=== PATIENT | male | born 1970 | race Caucasian/White ===

== ENCOUNTER 2018-03-10 05:18 | Day surgery (SDC) | payer OTHER, BC ==
[2018-03-09 13:10] VITALS: BMI 25.0
--- NOTE | 2018-03-10 09:15 | HP ---
[facility] - Chief Complaint Chief Complaint: right elbow pain History of Present Illness: right elbow pain History Source: Patient Limitations to Obtaining History: No Limitations - Past Medical History Allergies/Adverse Reactions: Allergies Allergy/AdvReac Type Severity Reaction Status Date / Time No Known Allergies Allergy Verified 03/09/18 13:13 - Current Medications Current Medications: Home Medications Medication Instructions Recorded NK [No Known Home Medication] 03/09/18 Satellite Physical Exam - Physical Examination General Appearance: Well Nourished ENT: Clear Lung: Clear to auscultation Heart: Regular rate & rhythm Breasts: Soft Abdomen: Soft Extremities: No edema Satellite Impression/Plan - Impression/Plan Impression: right elbow lateral epicondylitis Operative Procedure: right elbow lateral epicondylectomy, repair of extensor tendon Date to be Performed: 03/10/18
[2018-03-10] MEDS ORDERED: ONDANSETRON 4 MG/2 ML VIAL IVPUSH PRN (10:40)
[2018-03-10] MEDS ORDERED: ACETAMINOPHEN 1000 MG/100 ML VIAL (NON FORMULARY) IVPB ONE (10:40)
[2018-03-10] MEDS ORDERED: oxyCODONE HCL 5 MG TABLET PO PRN ×2 (10:40)
[2018-03-10] MEDS ORDERED: LACTATED RINGERS SOLUTION 1,000 ML IV SCH (10:45)
[2018-03-10] MEDS ORDERED: BUPIVACAINE HCL/PF 0.5% (5MG/ML) 10 ML VIAL ONE ×2 (11:22→12:06)
[2018-03-10] MEDS ORDERED: DEXAMETHASONE SOD PHOSPHATE/PF 10 MG/ML SDV ONE (11:22)
[2018-03-10] MEDS ORDERED: MIDAZOLAM HCL 2 MG/2 ML SINGLE DOSE VIAL ONE ×3 (11:23→12:46)
[2018-03-10] MEDS ORDERED: PROPOFOL 20 ML ONE ×2 (12:46)
[2018-03-10] MEDS ORDERED: DEXAMETHASONE SOD PHOSPHATE 4 MG/1 ML VIAL ONE (12:49)
[2018-03-10] MEDS ORDERED: LIDOCAINE HCL/PF 2% SDV 5ML VIAL ONE ×2 (12:49)
[2018-03-10] MEDS ORDERED: ceFAZolin SODIUM 1 GM VIAL ONE (12:49)
[2018-03-10] MEDS ORDERED: LIDOCAINE HCL 2% JELLY (5 ML/TUBE) ONE (12:49)
[2018-03-10] MEDS ORDERED: ceFAZolin SODIUM 1 GM VIAL IVPB ONE ×2 (13:19)
--- NOTE | 2018-03-10 14:51 | OP ---
Operative Note - Note: Operative Date: 03/10/18 Pre-Operative Diagnosis: right elbow lateral epicondylitis, tear of ECRB Operation: right elbow lateral epicondylectomy, repair of ECRB Implants: 3 x Mini Mitek suture anchors Surgeon: Dm Tran Anesthesiologist/PHARMACY INTERN: Franc Senior Anesthesia: General, Local Specimens Removed: elbow ecrb tissue Estimated Blood Loss (mls): 0 Drains, Volume Out (mls): 0 Blood Volume Replaced (mls): 0 Fluid Volume Replaced (mls): 1,000 Operative Report Dictated: Yes
[2018-03-10 16:01] VITALS: TEMP 97.9
[2018-03-10 16:40] VITALS: BP 132/83; PULSE 60
--- NOTE | 2018-03-11 09:36 | OP ---
DATE OF OPERATION: 03/10/2018 PREOPERATIVE DIAGNOSIS: Right elbow lateral epicondylitis and extensor carpi radialis brevis tear. POSTOPERATIVE DIAGNOSIS: Right elbow lateral epicondylitis and extensor carpi radialis brevis tear. PROCEDURE: Right elbow lateral epicondylectomy and repair of extensor carpi radialis brevis. SURGEON: Ermias Reyes MD ANESTHESIOLOGIST: Franc Senior CRNA ANESTHESIA: Right interscalene block with LMA anesthesia. DRAINS: None. COMPLICATIONS: None. SPECIMEN: Inflammatory tissue, right elbow ECRB tendon. IMPLANTS: Three Arthrex mini Mitek suture anchors. BLOOD LOSS: None. BLOOD GIVEN: None. FLUID REPLACEMENT: Plasma-Lyte 1000 mL. This patient is a 47-year-old male with preoperative diagnosis of severe, recurrent right elbow lateral epicondylitis and a torn ECRB tendon. After understanding the potential risks, complications, alternatives, and benefits of surgery versus nonsurgical treatment, the patient elected to undergo this procedure. Patient was brought to the operating room. Peripheral IV placed. IV sedation given. A right interscalene block was performed. LMA anesthesia was induced. He was placed into a sloppy lateral position with a bump under his right hemipelvis. Two grams of IV Ancef were given. The right upper extremity was prepped and draped in sterile fashion, elevated, exsanguinated with an Esmarch bandage. Tourniquet inflated to 250 mmHg. A curvilinear incision was marked lateral epicondyle at the origin of the ECRB. A number-15 scalpel blade was utilized to cut down through the skin. Subcutaneous hemostasis was achieved with the bipolar cautery, dissection done through the superficial fascia with Metzenbaum scissors. This exposed the lateral epicondyle, and the origin of the ECRB which already I could see had 1 longitudinal tear. Weitlaner retractors were placed into the wound, then used to freshen with 15-scalpel blade to use 3 longitudinal slits, one in the top portion near the ztea-pae-efj position; one in the middle portion, extending the already-existing tear; and the other slightly more posteriorly. Through the central rent, I was able to see a very large tear of the entire origin of the ECRB off the lateral epicondyle. The area was copiously irrigated and washed out. Inflammatory tissue that I could see directly was removed. A curette was used to curette the tendon and to mildly decorticate the lateral epicondyle. I then used a small, 1.5-mm, drill bit to do 4 drill holes in each of the 3 rents. These were in the lateral epicondyle. Next, I put in 1 mini Mitek suture anchor into the lateral epicondyle and repaired the ECRB down to the tendon. It was such a large tear that I put in 2 more mini Mitek suture anchors, one slightly anterior, one slightly posterior in a triangular fashion, and was able to tack down additional portions of the origin of the ECRB. I then used 2-0 Vicryl sutures and repaired all 3 rents. I then supplemented the repaired flap to the more anterior and posterior fascia. Overall, it came together quite nicely and completely covered the lateral epicondyle. The area was copiously irrigated and washed out, and 4-0 undyed Vicryl was used to close the deep dermal layer. Final skin reapproximation was done with a running subcuticular 4-0 Biosyn stitch. It was then washed and dried, covered with Steri-Strips, 4 x 4 gauze, Webril, and a 5-inch posterior Ortho-Glass splint was applied, wrapped with Katherin and 3 Teja bandages. Tourniquet was taken down after total tourniquet time of 60 minutes. There were no complications during the case. The patient tolerated the procedure quite well, was brought to the ambulatory recovery room in stable condition. ERMIAS REYES M.D. [id number]
--- NOTE | 2018-03-12 11:49 | PATH ---
Surgical Pathology Report Patient Name: RICHARD MCFARLANE [facility]. Rec. #: [id number] /Age/Gender: 1970 (Age: 47) / M Account: [id number] Location: [facility] Taken: 03/10/2018 Received: 03/11/2018 Reported: 03/12/2018 Physicians: Dm Tran M.D. Specimen(s) Received TISSUE RIGHT ELBOW Clinical History Lateral epicondylitis right arm, tear of ECRB Final Diagnosis BONE AND SOFT TISSUE, RIGHT ELBOW, EXCISION: PORTIONS OF SYNOVIUM, FIBROUS TISSUE, AND BONE. Electronically Signed Jimmie Pinedo M.D. Gross Description Received in formalin labeled "tissue right elbow," is a 1.5 x 1.4 x 0.2 cm aggregate of johnson fragments of fibrous tissue admixed with yellow, lobulated adipose tissue. The specimen is entirely submitted in one cassette. /03/11/201803/11/2018
== END 2018-03-10 16:30 | disposition home or self-care (01) ==
LOC: JASU-SURG 05:18
PROVIDERS: ATTEND Orthopaedic Surgery
PROC: 0LQ50ZZ Repair Right Lower Arm and Wrist Tendon, Open Approach (ICD-10-PCS; 2018-03-10)
PROC: 0RBL0ZZ Excision of Right Elbow Joint, Open Approach (ICD-10-PCS; principal; 2018-03-10 11:00)
DX: M77.11 Lateral epicondylitis, right elbow (principal)
CPT/HCPCS: 88304-TC; 94760

== ENCOUNTER → 2018-05-07 | Emergency (ER) | payer BC, OTHER ==
[~2018-05-07] MED LIST: ACETAMINOPHEN 1000 MG/100 ML VIAL (NON FORMULARY) IVPB ONE; ACETAMINOPHEN INJECTION 100 ML IVPB ONE; HALOPERIDOL LACTATE 5 MG/ML IVPUSH ONE; KETOROLAC TROMETHAMINE 30 MG/1 ML VIAL IVPUSH ONE; KETOROLAC TROMETHAMINE 30 MG/1 ML VIAL ONE; METOCLOPRAMIDE HCL INJECTION 10 MG/2 ML VIAL IVPB ONE; METOCLOPRAMIDE HCL INJECTION 10 MG/2 ML VIAL ONE; ONDANSETRON 4 MG/2 ML VIAL IVPUSH ONE; ONDANSETRON 4 MG/2 ML VIAL ONE; PANTOPRAZOLE SODIUM 40 MG VIAL IVPUSH ONE; PANTOPRAZOLE SODIUM 40 MG VIAL ONE; SODIUM CHLORIDE 0.9% 500 ML INFUS.BAG IV ONE
[2018-05-07 02:42] VITALS: BMI 25.0
--- NOTE | 2018-05-07 03:00 | PDOC ---
Attending Attestation - Resident Resident Name: Jin Murphy - ED Attending Attestation I have performed the following: I have examined & evaluated the patient, The case was reviewed & discussed with the resident, I agree w/resident's findings & plan, Exceptions are as noted - HPI HPI: 05/07/18 05:21 Ms Lehman is a 47 yo M h/o cyclical vomiting syndrome, h/o prior admission for abdominal pain Pt states he has had abdominal pain since yesterday Crampy pain, located in the center of his abdomen No fever or chills (+) vomiting No diarrhea In the past, pt has tried using marijuanna He did this again today but it did not help He tried sitting in a warm tub, this helped while he was in the tub but as soon as he left, his symptoms returned 05/07/18 05:29 - Physicial Exam PE: 05/07/18 04:35 GENERAL: The patient is in no acute distress, pt appears uncomfortable, (+) dark emesis in bag HEAD: Normal EYES: PERRLA, EOMI, sclera anicteric, conjunctiva clear. ENT: Dry mucous membranes. LUNGS: Breath sounds equal, clear to auscultation bilaterally. No wheezes, and no crackles. HEART:Regular rate and rhythm, normal S1 and S2 without murmur, rub or gallop. ABDOMEN: Soft, mid abdominal tenderness to palpation, no involuntary guarding, no rebound, no distention EXTREMITIES: Normal range of motion NEUROLOGICAL: Cranial nerves II through XII grossly intact. Normal speech. No focal neurological deficits. MUSCULOSKELETAL: Back non-tender to palpation SKIN: Warm, Dry, normal turgor, no rashes or lesions noted. 05/07/18 05:39 - Medical Decision Making 05/07/18 04:35 Laboratory Tests 05/07/18 05/07/18 03:15 03:15 WBC 13.4 H Hgb 15.4 Hct 44.6 Plt Count 317 Sodium 142 Potassium 4.3 Chloride 104 Anion Gap 10 BUN 15 Creatinine 1.0 Random Glucose 129 H Total Bilirubin 0.7 AST 21 ALT 42 Lipase 124 05/07/18 05:50 EKG: SR rate of 54 bpm, axis nml, intervals nml - pr: 114ms, QRS: 84ms, QTc: 415ms, no st elevations artifact noted baseline (suspect related to movement) Will treat pain Consider Haldol Will do CT (pt has not been here in almost 2 years, states pain has not improved with the things he typically does to improve his abdominal pain Signed out to Dr Mota
[2018-05-07 03:27] LABS: HEMATOCRIT 44.6 % (35.4-49); HEMOGLOBIN 15.4 GM/dL (11.7-16.9); MCH 32.7 pg (25.7-33.7); MCHC 34.4 g/dl (32.0-35.9); MEAN PLT VOLUME 8.7 fl (7.5-11.1); PLATELET COUNT 317 K/MM3 (134-434); WHITE BLOOD COUNT 13.4 K/mm3 (4.0-10.0)
[2018-05-07 03:54] LABS: ALBUMIN 4.8 g/dl (3.4-5.0); ALK PHOS 78 U/L (45-117); ANION GAP 10 MMOL/L (8-16); BILIRUBIN,TOTAL 0.7 mg/dL (0.2-1); BLOOD UREA NITROGEN 15 mg/dL (7-18); CALCIUM 9.1 mg/dL (8.5-10.1); CHLORIDE 104 mmol/L (98-107); CO2 29 mmol/L (21-32); GLUCOSE,RANDOM 129 mg/dL (74-106); POTASSIUM 4.3 mmol/L (3.5-5.1); SGOT/AST 21 U/L (15-37); SGPT/ALT 42 U/L (13-61); SODIUM 142 mmol/L (136-145)
[2018-05-07 04:32] LABS: LIPASE 124 U/L (73-393)
--- NOTE | 2018-05-07 05:31 | PDOC ---
History of Present Illness - General Chief Complaint: Vomiting Blood Stated Complaint: VOMITING BLOOD,CHILLS Time Seen by Provider: 05/07/18 03:00 - History of Present Illness Initial Comments: The patient is a 47M w/ a PMH of HTN and THC use who presents for evaluation of 4-5 hours of intractable bloody vomiting. The patient reports a history of anxiety with vomiting episodes in the past; however, none have been bloody in the past. He reports that he has not had any new foods, exposures, or sick contacts. He endorses associated chills, and epigastric abdominal pain. Denies IZAGUIRRE, blurry vision, chest pain, shortness of breath, dysuria, hematuria, constipation, diarrhea, or blood in his stool. Normal EGD per patient 1y ago 05/07/18 05:24 Past History - Past Medical History Allergies/Adverse Reactions: Allergies Allergy/AdvReac Type Severity Reaction Status Date / Time No Known Allergies Allergy Verified 03/10/18 09:35 Home Medications: Ambulatory Orders Hydrocodone/Acetaminophen [Hydrocodone-Acetamin 5-325 mg] 1 - 2 tab PO TID PRN # 40 tablet MDD 6 03/10/18 GI Disorders: Yes (gi problems ?) HTN: Yes - Suicide/Smoking/Psychosocial Hx Smoking Status: No Smoking History: Current every day smoker Have you smoked in the past 12 months: Yes Number of Cigarettes Smoked Daily: 12 Information on smoking cessation initiated: Yes 'Breaking Loose' booklet given: 03/10/18 Hx Alcohol Use: No Drug/Substance Use Hx: No Substance Use Type: None Hx Substance Use Treatment: No Review of Systems - Review of Systems Able to Perform ROS?: Yes Comments:: GENERAL/CONSTITUTIONAL: + chills. No weakness HEAD, EYES, EARS, NOSE AND THROAT: No change in vision. No ear pain or discharge. No sore throat CARDIOVASCULAR: No chest pain or shortness of breath RESPIRATORY: No cough, wheezing, or hemoptysis GASTROINTESTINAL: +HPI GENITOURINARY: No dysuria, frequency, or change in urination MUSCULOSKELETAL: No joint or muscle swelling or pain. No neck or back pain SKIN: No rash NEUROLOGIC: +IZAGUIRRE; Denies vertigo, loss of consciousness, or change in strength/ sensation ENDOCRINE: No increased thirst. No abnormal weight change HEMATOLOGIC/LYMPHATIC: No anemia, easy bleeding, or history of blood clots ALLERGIC/IMMUNOLOGIC: No hives or skin allergy 05/07/18 05:31 Is the patient limited Serbian proficient: No *Physical Exam - Vital Signs Last Vital Signs Temp Pulse Resp BP Pulse Ox 97.4 F L 72 18 164/88 100 05/07/18 02:40 05/07/18 02:40 05/07/18 02:40 05/07/18 02:40 05/07/18 02:40 - Physical Exam Comments: GENERAL: Awake, alert, and fully oriented HEAD: No signs of trauma, normocephalic, atraumatic EYES: PERRL, EOMI, sclera anicteric, conjunctiva clear ENT: Hearing grossly normal, nares patent, oropharynx clear without exudates. Dry mucosa NECK: Normal ROM, supple LUNGS: No distress, speaks full sentences, clear to auscultation bilaterally HEART:Regular rate and rhythm, normal S1 and S2, no murmurs appreciated, peripheral pulses normal and equal bilaterally ABDOMEN: Soft, non-distended, moderate epigastric TTP w/o rebound or guarding, normoactive bowel sounds EXTREMITIES : Normal inspection, Normal range of motion, no edema. No clubbing or cyanosis NEUROLOGICAL: Cranial nerves II through XII grossly intact. Normal speech, no focal sensorimotor deficits SKIN: Warm, Dry, normal turgor, no rashes or lesions noted 05/07/18 05:31 General Appearance: Yes: Nourished ED Treatment Course - LABORATORY CBC & Chemistry Diagram: 05/07/18 03:15 05/07/18 03:15 - ADDITIONAL ORDERS Additional order review: Laboratory Results 05/07/18 03:15 Sodium 142 Potassium 4.3 Chloride 104 Carbon Dioxide 29 Anion Gap 10 BUN 15 Creatinine 1.0 Creat Clearance w eGFR > 60 Random Glucose 129 H Calcium 9.1 Total Bilirubin 0.7 AST 21 ALT 42 Alkaline Phosphatase 78 Total Protein 8.0 Albumin 4.8 Lipase 124 05/07/18 03:15 RBC 4.70 MCV 95.0 MCHC 34.4 RDW 13.0 MPV 8.7 - RADIOLOGY Radiology Studies Ordered: Category Date Time Status ABDOMEN & PELVIS CT WITH CONTR [CT] Stat CT Scan 05/07/18 05:07 Ordered CHEST X-RAY PORTABLE* [RAD] Stat Radiology 05/07/18 05:06 Ordered - Medications Given in the ED: ED Medications Discontinued Medications Generic Name Dose Route Start Last Admin Trade Name Taryn PRN Reason Stop Dose Admin Acetaminophen 1,000 mg 05/07/18 02:38 05/07/18 04:26 Ofirmev Injection - IVPB 05/07/18 02:39 1,000 mg ONCE ONE Administration Ondansetron HCl 4 mg 05/07/18 02:33 05/07/18 02:40 Zofran Injection IVPUSH 05/07/18 02:34 4 mg ONCE ONE Administration Pantoprazole Sodium 40 mg 05/07/18 02:33 05/07/18 02:40 Protonix Iv IVPUSH 05/07/18 02:34 40 mg ONCE ONE Administration Sodium Chloride 1,000 ml 05/07/18 02:37 05/07/18 02:40 Normal Saline - IV 05/07/18 02:38 1,000 ml ONCE ONE Administration Medical Decision Making - Medical Decision Making The patient is a 47M w/ a history of GERD and THC use who presents for evaluation for 4-5 hours of hematemesis and associated epigastric abdominal pain Ddx: cyclic vomiting syndrome, moise kowalski v boerhaave, PUD, GERD, gastritis ED Course CMP, CBC, Lipase ECG CXR, CT A&P 1L NS for resuscitation Zofran 4mg IV once for nausea Protonix 40mg IV once for GI bleed Ofirmev 1g IV once for pain Lytes wnl No leukocytosis Lipase and LFTs wnl ECG w/ sinus kelli, no evidence of acute ischemia Patient's nausea improved 1L NS for continued resuscitation 05/07/18 05:41 Toradol 30mg IV once for pain 05/07/18 06:[address] and XR 05/07/18 06:22 *DC/Admit/Observation/Transfer Diagnosis at time of Disposition: Nausea & vomiting Qualifiers: Vomiting type: hematemesis Qualified Code(s): K92.0 - Hematemesis GERD (gastroesophageal reflux disease) Qualifiers: Esophagitis presence: esophagitis presence not specified Qualified Code(s): K21.9 - Gastro-esophageal reflux disease without esophagitis Abdominal pain Qualifiers: Abdominal location: epigastric Qualified Code(s): R10.13 - Epigastric pain - Discharge Dispostion Condition at time of disposition: Good Decision to Admit order: Yes - Referrals Referrals: [facility] [place] [facility] [place] [Provider Group] [facility] [Provider Group] - Patient Instructions Printed Discharge Instructions: DI for Vomiting -- Adult Additional Instructions: You were seen in the Emergency Department for evaluation of blood in your vomit. Please review the handout provided at discharge. Follow up with your primary care provider within 1-3 days. Return to the Emergency Department if you develop fever/chills, intractable vomiting, worsening symptoms, or new/concerning symptoms - Post Discharge Activity
[2018-05-07 06:55] VITALS: BP 139/83; PULSE 94; TEMP 99
--- NOTE | 2018-05-07 07:23 | PDOC ---
*Physical Exam - Vital Signs Last Vital Signs Temp Pulse Resp BP Pulse Ox 99.0 F 94 H 20 139/83 96 05/07/18 06:52 05/07/18 06:52 05/07/18 06:52 05/07/18 06:52 05/07/18 06:52 ED Treatment Course - LABORATORY CBC & Chemistry Diagram: 05/07/18 03:15 05/07/18 03:15 - ADDITIONAL ORDERS Additional order review: Laboratory Results 05/07/18 03:15 Sodium 142 Potassium 4.3 Chloride 104 Carbon Dioxide 29 Anion Gap 10 BUN 15 Creatinine 1.0 Creat Clearance w eGFR > 60 Random Glucose 129 H Calcium 9.1 Total Bilirubin 0.7 AST 21 ALT 42 Alkaline Phosphatase 78 Total Protein 8.0 Albumin 4.8 Lipase 124 05/07/18 05:00 Influenza Types A,B Antigen - Final Nasopharyngeal Swab - Final 05/07/18 03:15 RBC 4.70 MCV 95.0 MCHC 34.4 RDW 13.0 MPV 8.7 - Medications Given in the ED: ED Medications Discontinued Medications Generic Name Dose Route Start Last Admin Trade Name Freq PRN Reason Stop Dose Admin Acetaminophen 1,000 mg 05/07/18 02:38 05/07/18 04:26 Ofirmev Injection - IVPB 05/07/18 02:39 1,000 mg ONCE ONE Administration Haloperidol 5 mg 05/07/18 05:33 05/07/18 05:40 Haldol Injection (Fast Acting) - IVPUSH 05/07/18 05:34 Not Given ONCE ONE Ketorolac Tromethamine 30 mg 05/07/18 06:09 05/07/18 06:20 Toradol Injection - IVPUSH 05/07/18 06:10 30 mg ONCE ONE Administration Ondansetron HCl 4 mg 05/07/18 02:33 05/07/18 02:40 Zofran Injection IVPUSH 05/07/18 02:34 4 mg ONCE ONE Administration Pantoprazole Sodium 40 mg 05/07/18 02:33 05/07/18 02:40 Protonix Iv IVPUSH 05/07/18 02:34 40 mg ONCE ONE Administration Sodium Chloride 1,000 ml 05/07/18 02:37 05/07/18 02:40 Normal Saline - IV 05/07/18 02:38 1,000 ml ONCE ONE Administration Sodium Chloride 1,000 ml 05/07/18 05:56 05/07/18 06:00 Normal Saline - IV 05/07/18 05:57 1,000 ml ONCE ONE Administration Medical Decision Making - Medical Decision Making Signed out by Dr. Murphy. Pt currently stable. Awaiting CT abdomen and chest x-ray. 05/07/18 07:09 Pt was taken to CT and x-ray, awaiting results. 05/07/18 07:48 Chest x-ray shows no acute pathology. 05/07/18 07:49 Called radiology to follow-up on CT results; results pending. 05/07/18 08:43 [id number] CT/ABDOMEN & PELVIS CT WITH CONTR Rule out infection. Rule out gastric perforation CT scan of the abdomen and pelvis following oral and intravenous contrast. Coronal and sagittal reformatted images were obtained 100 cc of Omnipaque 350 was intravenously injected cc of Omnipaque 350 was intravenously injected Comparison: Prior CT scan of the abdomen pelvis dated 05/23/2016 Lack of oral contrast is limiting this exam. Visualized lung base appears unremarkable and the heart is within normal limits in size. There is a questionable tiny hiatus hernia. The stomach is partially distended without gross wall thickening. Evaluation of the liver, spleen, pancreas, gallbladder, both adrenal glands and both kidneys appear unremarkable. Lack of oral contrast administration is limiting evaluation of the bowel loops without gross evidence of bowel wall thickening. There is no evidence of small bowel obstruction. Nondistended terminal ileum without gross wall thickening. Normal-appearing appendix. Normal stool burden in the colon with a tiny diverticulum at the junction of the distal descending and proximal sigmoid colon without evidence of acute diverticulitis. Moderately distended urinary bladder without wall thickening. Normal size prostate gland. Perirectal and pericecal fat are clear No free air, free fluid or gross enlarged lymph nodes are identified. Visualized osseous structures appear intact IMPRESSION: Lack of oral contrast administration is limiting this exam. Partially distended stomach without gross wall thickening.. Correlate for further evaluation. No free air or free fluid in the abdomen and pelvis. Limited evaluation of the bowel loops due to nondistention with oral contrast. There is no evidence of small bowel obstruction and there is no gross wall thickening. Tiny diverticulum at the junction of the distal descending and proximal sigmoid colon without evidence of acute diverticulitis Correlate clinically to determine further evaluation and follow-up 05/07/18 09:12 CT not impressive for gross acute pathology. No evidence of boeerhave, stomach perforation, or blood in abdomen. Pt able to tolerate PO water intake. Pt states symptoms have improved, no further episodes of vomiting or hematemesis since I have seen the pt. Pt discharged with strict return precautions and pt understanding. Follow-up with GI and PCP referrals provided. *DC/Admit/Observation/Transfer Diagnosis at time of Disposition: Nausea & vomiting Qualifiers: Vomiting type: hematemesis Qualified Code(s): K92.0 - Hematemesis GERD (gastroesophageal reflux disease) Qualifiers: Esophagitis presence: esophagitis presence not specified Qualified Code(s): K21.9 - Gastro-esophageal reflux disease without esophagitis Abdominal pain Qualifiers: Abdominal location: epigastric Qualified Code(s): R10.13 - Epigastric pain - Discharge Dispostion Disposition: HOME Condition at time of disposition: Good Decision to Admit order: No - Referrals Referrals: [facility] [Provider Group] [facility] [place] [facility] [place] [Provider Group] - Patient Instructions Printed Discharge Instructions: DI for Vomiting -- Adult Additional Instructions: You were seen in the Emergency Department for evaluation of blood in your vomit. Please review the handout provided at discharge. Follow up with your primary care provider within 1-3 days. Please discontinue marijuana use, as this could be contributing to your continued vomiting. Return to the Emergency Department if you develop fever/chills, vomiting that does not resolve, worsening levels of blood in your vomit, or any new/ concerning symptoms. - Post Discharge Activity
--- NOTE | 2018-05-07 09:30 | EKG ---
Test Reason : Blood Pressure : / mmHG Vent. Rate : 054 BPM Atrial Rate : 054 BPM P-R Int : 114 ms QRS Dur : 084 ms QT Int : 438 ms P-R-T Axes : 056 067 048 degrees QTc Int : 415 ms SINUS BRADYCARDIA WHEN COMPARED WITH ECG OF 23-MAY-2016 10:34, NO SIGNIFICANT CHANGE WAS FOUND Confirmed by HUSSEIN PETERS MD ([id number]) on 05/07/2018 9:29:31 AM Referred By: Confirmed By:HUSSEIN PETERS MD
== END | disposition home or self-care (01) ==
LOC: JER 02:10
PROC: 3E033GC Introduction of Other Therapeutic Substance into Peripheral Vein, Percutaneous Approach (ICD-10-PCS; principal; 2018-05-07)
PROC: 3E0333Z Introduction of Anti-inflammatory into Peripheral Vein, Percutaneous Approach (ICD-10-PCS; 2018-05-07)
PROC: 3E0337Z Introduction of Electrolytic and Water Balance Substance into Peripheral Vein, Percutaneous Approach (ICD-10-PCS; 2018-05-07)
DX: K92.0 Hematemesis (principal); K21.9 Gastro-esophageal reflux disease without esophagitis; R10.13 Epigastric pain
CPT/HCPCS: 36415; 71045-TC-FY; 74177-TC; 80053; 83690; 85027; 87804; 93005; 93010; 99283-25; J0131

== ENCOUNTER 2020-10-25 09:05 | Day surgery (SDC) | payer BC, OTHER ==
[2020-10-23 10:04] VITALS: BMI 26.4
[2020-10-25] MEDS ORDERED: oxyCODONE HCL 5 MG TABLET PO PRN (10:52)
[2020-10-25] MEDS ORDERED: ONDANSETRON 4 MG/2 ML VIAL IVPUSH PRN (10:52)
[2020-10-25] MEDS ORDERED: PROPOFOL 20 ML ONE (10:56)
[2020-10-25] MEDS ORDERED: MIDAZOLAM HCL 2 MG/2 ML SINGLE DOSE VIAL ONE (10:56)
[2020-10-25] MEDS ORDERED: LACTATED RINGERS SOLUTION 1,000 ML IV SCH (11:00)
[2020-10-25] MEDS ORDERED: BUPIVACAINE HCL/PF 0.5% (5 MG/ML) 30 ML VIAL IJ ONE (11:43)
[2020-10-25 12:57] VITALS: TEMP 98.5
[2020-10-25] MEDS ORDERED: oxyCODONE HCL 5 MG TABLET ONE (12:59)
[2020-10-25 13:22] VITALS: BP 126/74; PULSE 76
== END 2020-10-25 13:45 | disposition home or self-care (01) ==
LOC: FASU 09:05
PROVIDERS: ATTEND Orthopaedic Surgery
PROC: 0SBD4ZZ Excision of Left Knee Joint, Percutaneous Endoscopic Approach (ICD-10-PCS; principal; 2020-10-25 11:26)
DX: S83.242A Other tear of medial meniscus, current injury, left knee, initial encounter (principal); M65.862 Other synovitis and tenosynovitis, left lower leg; M94.262 Chondromalacia, left knee; X58.XXXA Exposure to other specified factors, initial encounter; Y92.9 Unspecified place or not applicable; Y93.9 Activity, unspecified
CPT/HCPCS: 94760